=== PATIENT | male | born 1980 | race Caucasian/White ===

== ENCOUNTER 2017-01-31 20:03 | Emergency (ER) | payer OTHER ==
[2017-01-31 20:16] VITALS: TEMP 97; BMI 29.8
[2017-02-01 01:28] LABS: BASOPHIL 0.6 % (0-2.0); EOSINOPHIL 3.2 % (0-4.5); MCHC 31.6 g/dl (32.0-35.9); MEAN CELL VOLUME 60.4 fl (80-96); MEAN PLT VOLUME 8.8 fl (7.5-11.1); NEUTROPHILS 46.3 % (42.8-82.8); PLATELET COUNT 142 K/MM3 (134-434); RDW 16.5 % (11.9-15.9); WHITE BLOOD COUNT 8.8 K/mm3 (4.0-10.0)
[2017-02-01 01:33] LABS: MCH 19.1 pg (25.7-33.7)
[2017-02-01 01:58] LABS: URINE APPEARANCE CLEAR; URINE BILIRUBIN NEGATIVE (NEGATIVE); URINE BLOOD NEGATIVE (NEGATIVE); URINE COLOR YELLOW; URINE GLUCOSE (UA) NEGATIVE (NEGATIVE); URINE KETONE NEGATIVE (NEGATIVE); URINE LEUK ESTERASE NEGATIVE (NEGATIVE); URINE NITRITE NEGATIVE (NEGATIVE); URINE PROTEIN NEGATIVE (NEGATIVE); URINE UROBILINOGEN NEGATIVE E.U./dl (0.2-1.0)
[2017-02-01 02:05] LABS: ALBUMIN 3.9 g/dl (3.4-5.0); ANION GAP 8 (8-16); BILIRUBIN,TOTAL 0.5 mg/dL (0.2-1.0); CALCIUM 8.6 mg/dL (8.5-10.1); CO2 28 mmol/L (21-32); COCKROFT - GAULT 109.13; CREATININE 1.1 mg/dL (0.7-1.3); GLUCOSE,RANDOM 95 mg/dL (74-106); SGOT/AST 22 U/L (15-37); SGPT/ALT 46 U/L (12-78); TOT PROT 6.5 g/dl (6.4-8.2)
[2017-02-01 02:07] LABS: ALK PHOS 90 U/L (45-117); TROPONIN I < 0.02 ng/ml (0.00-0.05)
[2017-02-01 02:09] LABS: URINE MARIJUANA THC NEGATIVE ng/ml (CUTOFF=50)
--- NOTE | 2017-02-01 03:29 | PDOC ---
History of Present Illness - General Chief Complaint: Lightheaded Stated Complaint: DIZZINESS Time Seen by Provider: 02/01/17 01:00 History Source: Patient Exam Limitations: No Limitations - History of Present Illness Initial Comments: 02/01/17 03:20 36yo Male patient presents to ED c/o lightheadedness, dizziness, shaking upon waking up today. Patient reports symptoms have been ongoing x 6 months, and reason why he came in today is because his significant other wanted him to be evaluation. She states while at dinner his eyes appeared funny and she was concerned. Patient denies CP, Abd pain, Back pain, fever, n/v/d, confusion, disorientation, vision loss, or any other complaints at this time. PCP- None. Timing/Duration: reports: other (6 months.) Severity: Yes: mild Associated Symptoms: reports: other (Dizziness) Past History - Travel Traveled outside of the country in the last 30 days: No Close contact w/someone who was outside of country & ill: No - Past Medical History Allergies/Adverse Reactions: Allergies Allergy/AdvReac Type Severity Reaction Status Date / Time No Known Allergies Allergy Verified 01/31/17 20:16 Home Medications: Ambulatory Orders Meclizine HCl 25 mg PO TID PRN #30 tablet 02/01/17 Cardiac Disorders: Yes (a fib) - Psycho/Social/Smoking Cessation Hx Suicidal Ideation: No Smoking History: Current every day smoker Number of Cigarettes Smoked Daily: 20 Information on smoking cessation initiated: No Neuro Specific PMHX - Complaint Specific PMHX Glaucoma: No Herniated Disk: No Laminectomy: No Migraine: No Multiple Sclerosis: No Neuropathy: No TIA: No Review of Systems - Review of Systems Able to Perform ROS?: Yes Is the patient limited Slovenian proficient: No Constitutional: No: Chills, Fever HEENTM: No: Eye Pain, Blurred Vision, Double Vision Respiratory: No: Cough, Orthopnea, Shortness of Breath, Stridor, Wheezing Cardiac (ROS): Yes: Lightheadedness. No: Chest Pain, Edema, Palpitations, Syncope, Chest Tightness ABD/GI: No: Constipated, Diarrhea, Nausea, Poor Appetite, Poor Fluid Intake, Vomiting : No: Burning, Dysuria, Discharge, Hematuria Musculoskeletal: No: Back Pain, Muscle Pain, Muscle Weakness Neurological: Yes: Dizziness. No: Headache, Seizure, Tingling, Tremors, Weakness, Unsteady Gait, Ataxia All Other Systems: Reviewed and Negative *Physical Exam - Vital Signs Last Vital Signs Temp Pulse Resp BP Pulse Ox 97 F L 90 18 154/75 99 01/31/17 20:12 01/31/17 20:12 01/31/17 20:12 01/31/17 20:12 01/31/17 20:12 - Physical Exam General Appearance: Yes: Nourished, Appropriately Dressed. No: Apparent Distress, Mild Distress, Moderate Distress, Severe Distress HEENT: positive: EOMI, LEIGH, Normal ENT Inspection, Normal Voice, Symmetrical, TMs Normal, Pharynx Normal. negative: Pale Conjunctivae, Photophobia, Nasal Congestion, Rhinorrhea, TM Bulging, TM Dull, TM Erythema Neck: positive: Trachea midline, Normal Thyroid, Supple. negative: Rigid, Decreased range of motion, Stridor, Lymphadenopathy (R), Lymphadenopathy (L) Respiratory/Chest: positive: Lungs Clear, Normal Breath Sounds. negative: Respiratory Distress, Accessory Muscle Use, Labored Respiration, Rhonchi, Stridor, Wheezing Cardiovascular: positive: Regular Rhythm, Regular Rate. negative: Edema, JVD, Murmur Gastrointestinal/Abdominal: positive: Normal Bowel Sounds, Soft. negative: Distended, Guarding, Rebound, Tenderness Musculoskeletal: positive: Normal Inspection. negative: CVA Tenderness Extremity: positive: Normal Capillary Refill, Normal Inspection, Normal Range of Motion. 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 intact, Fully Oriented, Alert, Normal Mood/ Affect, Normal Response, Motor Strength 5/5 ED Treatment Course - LABORATORY CBC & Chemistry Diagram: 02/01/17 01:22 02/01/17 01:22 - ADDITIONAL ORDERS Additional order review: Laboratory Results 02/01/17 02/01/17 02/01/17 01:39 01:39 01:22 Sodium Potassium Chloride Carbon Dioxide Anion Gap BUN Creatinine Creat Clearance w eGFR Random Glucose Calcium Total Bilirubin AST ALT Alkaline Phosphatase Creatine Kinase Creatine Kinase Index CK-MB (CK-2) CK-MB (CK-2) Rel Index Cancelled Troponin I Total Protein Albumin Urine Color Yellow Urine Appearance Clear Urine pH 5.0 Ur Specific [place] 1.024 Urine Protein Negative Urine Glucose (UA) Negative Urine Ketones Negative Urine Blood Negative Urine Nitrite Negative Urine Bilirubin Negative Urine Urobilinogen Negative Ur Leukocyte Esterase Negative Opiates Screen Negative Methadone Screen Negative Barbiturate Screen Negative Phencyclidine Screen Negative Ur Amphetamines Screen Negative MDMA (Ecstasy) Screen Negative Benzodiazepines Screen Negative Cocaine Screen Negative U Marijuana (THC) Screen Negative 02/01/17 01:22 Sodium 142 Potassium 4.3 Chloride 106 Carbon Dioxide 28 Anion Gap 8 BUN 18 Creatinine 1.1 Creat Clearance w eGFR > 60 Random Glucose 95 Calcium 8.6 Total Bilirubin 0.5 AST 22 ALT 46 Alkaline Phosphatase 90 Creatine Kinase 162 Creatine Kinase Index CK-MB (CK-2) < 1.000 CK-MB (CK-2) Rel Index Troponin I < 0.02 Total Protein 6.5 Albumin 3.9 Urine Color Urine Appearance Urine pH Ur Specific [place] Urine Protein Urine Glucose (UA) Urine Ketones Urine Blood Urine Nitrite Urine Bilirubin Urine Urobilinogen Ur Leukocyte Esterase Opiates Screen Methadone Screen Barbiturate Screen Phencyclidine Screen Ur Amphetamines Screen MDMA (Ecstasy) Screen Benzodiazepines Screen Cocaine Screen U Marijuana (THC) Screen 02/01/17 01:22 RBC 6.11 H MCV 60.4 L MCHC 31.6 L RDW 16.5 H MPV 8.8 Neutrophils % 46.3 Lymphocytes % 40.0 Monocytes % 9.9 Eosinophils % 3.2 Basophils % 0.6 - RADIOLOGY Radiology Studies Ordered: Category Date Time Status HEAD CT WITHOUT CONTRAST [CT] Stat CT Scan 02/01/17 01:14 Taken CHEST PA & LAT [RAD] Stat Radiology 02/01/17 01:14 Taken *DC/Admit/Observation/Transfer Diagnosis at time of Disposition: Vertigo - Discharge Dispostion Disposition: HOME Condition at time of disposition: Stable Admit: No - Prescriptions Prescriptions: Meclizine HCl 25 mg PO TID PRN #30 tablet PRN Reason: Dizziness/Vertigo - Referrals Referrals: Piedad Mandel MD [Staff Physician] - - Patient Instructions Printed Discharge Instructions: DI for Vertigo Additional Instructions: FOLLOW UP WITH DR. MANDEL (NEUROLOGY). CALL TO SCHEDULE APPOINTMENT. TAKE MEDICATIONS PRESCRIBED. RETURN IF SYMPTOMS WORSEN OR ANY CONCERNS FOR FURTHER EVALUATION. Print Language: MALTESE
[2017-02-01 03:51] VITALS: BP 154/70; PULSE 79
== END 2017-02-01 03:50 | disposition home or self-care (01) ==
LOC: JER 20:03
DX: R42 Dizziness and giddiness (principal); I48.91 Unspecified atrial fibrillation; F17.210 Nicotine dependence, cigarettes, uncomplicated
CPT/HCPCS: 36415; 70450-TC; 71020-TC; 80053; 80307; 81003; 82550; 82553; 84484; 85025; 99282-25